=== PATIENT | female | born 1975 | race Caucasian/White ===

== ENCOUNTER 2021-01-30 13:43 | Emergency (ER) | payer OTHER, SELFPAY ==
[2021-01-30 13:50] VITALS: BP 142/67; PULSE 83; RESP 22; TEMP 36.9; O2SAT 98
--- NOTE | 2021-01-30 14:17 | ED.DENTAL ---
HPI - Dental/Oral General Chief complaint: Dental/Oral Stated complaint: Tooth pain/swelling Time Seen by Provider: 01/30/21 14:20 Source: patient, family and RN notes reviewed Mode of arrival: ambulatory Limitations: no limitations History of Present Illness HPI Narrative: 46 year old female who present to express care with complaints of pain to right gum area around #3 tooth which is decayed to the gum line with redness and swelling of her gum. Patient has moderate amount of swelling to the right side of her face. Patient states that she has been taking OTC Tylenol for pain and some left over Clindamycin. Patient states that she had problems with this area about a year or so ago and went to dentist who was going to charge her 1500 dollars to remove tooth even though she has dental insurance. MD Complaint: tooth pain Location: Tooth # (#3) Onset (ago): day(s) Severity scale (1-10): 8 Relieving factors: nothing Exacerbating factors: chewing and other (palpation to face) Context: history of dental caries and poor dental care Associated symptoms: gum swelling and other (facial swelliing) Related Data Allergies Allergy/AdvReac Type Severity Reaction Status Date / Time prednisone Allergy Intermediate Swelling Verified 01/30/21 14:01 Review of Systems Review of Systems: CONSTITUTIONAL: Denies fever, chills, or sweats. EYES: Denies visual changes, redness, or discharge. ENT: Denies rhinorrhea, congestion, sore throat, or otalgia.Positive for dental pain to right side of upper molar#3 with facial swelling. CARDIOVASCULAR: Denies chest pain, palpitations, or edema. RESPIRATORY: Denies cough or dyspnea. GASTROINTESTINAL: Denies abdominal pain, nausea, vomiting, or diarrhea. GENITOURINARY: Denies dysuria or hematuria. SKIN: Denies rash or itching. MUSCULOSKELETAL: Denies back pain, joint pain, or myalgia. NEUROLOGIC: Denies headache, numbness, or weakness. PSYCHIATRIC: Denies anxiety or depression. All systems reviewed & are unremarkable except as noted in HPI and below PMFSH Past Medical History Medical History Abdominal pain Allergies Asthma Asthma, mild intermittent Carpal tunnel syndrome Herpetic lesions of face (~08/2017) Low back pain with right-sided sciatica Mild intermittent asthma in adult without complication Obesity (BMI 35.0-39.9 without comorbidity) Renal mass (~08/2017) Tobacco abuse URI (upper respiratory infection) (~08/2017) Surgical History Surgical History History of tonsillectomy and adenoidectomy History of tubal ligation (~2005) [place] teeth extracted Family History Family History Mother Hypertension Social History Social History (Updated 11/15/20 @ 11:08 by Ruchi Cohen [facility]) Years smoked: 29 Smoking status: Current every day smoker Tobacco type: cigarettes Alcohol intake: never Alcohol use details: consumes 0 alcohol Substance use: never Substance use type: does not use Gender identity (if verbalized by the patient): Female Exam Narrative: GENERAL: Well-appearing, well-nourished, and in no acute distress. HEAD: Normocephalic, atraumatic. EYES: PERRLA and EOMI. ENT: Nares clear, no rhinorrhea or epistaxis. Mucous membranes moist. TMs normal with good light reflex, throat pink with no swelling, no exudates or lesions noted, no tonsil enlargement, No [place] angina, facial swelling of the right side of face with dental pain #3 tooth which is decayed to gum line with swelling and redness of gum NECK: Supple.no lymphadenopathy CHEST: Clear to auscultation. No respiratory distress.SAO2 98% on room air HEART: Regular rate and rhythm. No murmur heard. Normal peripheral pulses. ABDOMEN: Soft, nontender, nondistended, normal active bowel sounds. EXTREMITIES: Normal range of motion. No edema. SKIN: Warm, dry,
== END 2021-01-30 14:53 | disposition home or self-care (01) ==
PROVIDERS: Emergency Provider Registered Nurse
DX: K04.7 Periapical abscess without sinus (principal); R22.0 Localized swelling, mass and lump, head; F17.210 Nicotine dependence, cigarettes, uncomplicated; J45.909 Unspecified asthma, uncomplicated
CPT/HCPCS: 99213; G0463

== ENCOUNTER 2022-09-25 11:33 | Emergency (ER) | payer BC, SELFPAY ==
[2022-09-25 11:34] VITALS: BP 145/84; PULSE 71; RESP 18; TEMP 36.6; O2SAT 97
--- NOTE | 2022-09-25 11:48 | ED.DENTAL ---
HPI - Dental/Oral General Chief complaint: Dental/Oral Stated complaint: dental pain Time Seen by Provider: 09/25/22 11:39 History of Present Illness HPI Narrative: Patient presents with swelling to her right face, had been worse yesterday and is slightly better today, she has poor dentition and has trouble finding a dentist. No fevers or chills, nausea or vomiting. Related Data Allergies Allergy/AdvReac Type Severity Reaction Status Date / Time prednisone Allergy Intermediate Swelling Verified 09/25/22 11:41 Review of Systems Review of Systems: CONST: No fever. HEENT: Dental swelling C/V: No chest pain RESP: no shortness of breath GI: No nausea or vomiting : No dysuria. M/S: No joint pain. SKIN: No rash. NEURO: [No headache or focal numbness or weakness] PSYCH: [No depression] [facility] Past Medical History Medical History Abdominal pain Allergies Asthma Asthma, mild intermittent Carpal tunnel syndrome Herpetic lesions of face (~08/2017) Low back pain with right-sided sciatica Mild intermittent asthma in adult without complication Obesity (BMI 35.0-39.9 without comorbidity) Renal mass (~08/2017) Tobacco abuse URI (upper respiratory infection) (~08/2017) Surgical History Surgical History History of tonsillectomy and adenoidectomy History of tubal ligation (~2005) [place] teeth extracted Family History Family History Mother Hypertension Social History Social History (Updated 11/15/20 @ 11:08 by Ruchi Cohen CMA) Years smoked: 29 Smoking status: Current every day smoker Tobacco type: cigarettes Alcohol intake: never Alcohol use details: consumes 0 alcohol Substance use: never Substance use type: does not use Gender identity (if verbalized by the patient): Female Exam Narrative: EXAMINATION OF ORGAN SYSTEMS/BODY AREAS: Constitutional: Vital signs per nursing GENERAL:[No acute distress, non-toxic appearing.] HEAD: Normal with no signs of head trauma. EYES: Painless EOMI, conjunctiva normal ENT: swelling to the right maxilla, poor dentition, dental abscess R molar LUNGS: Nonlabored breathing. HEART: [Regular rate and rhythm] ABD: No distention EXT: Normal range of motion SKIN: [No rashes or lesions.] NEURO: [Alert and oriented x 3. No gross focal sensory or strength deficits.] PSYCH: Normal affect Course Vital Signs Vital signs: Vital Signs Temperature 97.9 F 09/25/22 11:34 Pulse Rate 71 09/25/22 11:34 Respiratory Rate 18 09/25/22 11:34 Blood Pressure 145/84 H 09/25/22 11:34 Pulse Oximetry 97 09/25/22 11:34 Oxygen Delivery Room Air 09/25/22 11:34 Temperature 97.9 F 09/25/22 11:34 Pulse Rate 71 09/25/22 11:34 Respiratory Rate 18 09/25/22 11:34 Blood Pressure 145/84 H 09/25/22 11:34 Pulse Oximetry 97 09/25/22 11:34 Oxygen Delivery Room Air 09/25/22 11:34 MDM - Dental/Oral MDM Narrative Medical decision making narrative: ED COURSE AND MEDICAL DECISION MAKING: Patient with worsening dental pain and dental decay. Small palpable abscess without much fluctuance due to drain. No systemic signs or symptoms. Antibiotics started here and prescriptions provided Follow-up instructions given for dental/oral surgery clinics. Patient was given return precautions and discharged home in stable condition. Discharge Plan Discharge Clinical Impression: Dental caries, Dental abscess Patient Disposition: Home, Self-Care Condition: Stable Instructions: Antibiotic Form, Dental Abscess (ED) Additional Instructions: Please follow up with the dentist as soon as possible; you can always return for any further issues, especially if you develop any fevers or chills, nausea or vomiting, or if the swelling does not improve after few days or if it gets
[2022-09-25] MEDS: CLINDAMYCIN HCL 150 MG CAP 450 MG PO (11:51)
== END 2022-09-25 12:03 | disposition home or self-care (01) ==
LOC: ANHED 12:02
PROVIDERS: Emergency Provider Emergency Medicine; PCP Family Medicine
DX: K04.7 Periapical abscess without sinus (principal); K02.9 Dental caries, unspecified; J45.20 Mild intermittent asthma, uncomplicated; E66.9 Obesity, unspecified; Z68.33 Body mass index [BMI] 33.0-33.9, adult; F17.210 Nicotine dependence, cigarettes, uncomplicated
CPT/HCPCS: 99283; A9270

== ENCOUNTER 2024-11-05 16:01 | Emergency (ER) | payer SELFPAY ==
--- NOTE | ~2024-11-05 | XR_ITS ---
XR shoulder RT min 2V Ordering provider: Jeff Morelos MD History: . shoulder pain . Comparison: None. FINDINGS: BONES: No acute fracture or dislocation. JOINT SPACES: The acromioclavicular joint is normal. The glenohumeral joint is normal. SOFT TISSUES: Normal. IMPRESSION: No acute osseous abnormality right shoulder. Reviewed, dictated and finalized at location A.
--- OUTSIDE RECORDS SUMMARY | 2024-11-05 16:03 | XMS_ITS | Continuity of Care Document ---
Author Organization [facility] Address [address] [place] [address] utive [facility] [address] [place] [address] Phone Care Team Providers [facility] Sales Name Role Phone Suazo OD, Jose L Unavailable Unavailable Procedures Procedure Date Eye Exam, New Patient Refraction Advance Directives Directive Yes / No Effective Date File Name No Information Encounters Encounter Description Practice Location Reason(s) For Visit Diagnoses Date Provider Providers Copied on Encounter [facility], [address] [place] [address] [address], [place], [place], [id number], [place] tel:[phone] [facility] No Information 9-200 9 Suazo OD Jose L. [address] , [address], [place], [address], [place]. tel:[phone] Family History Family Member Type Diagnosis Age At Onset No Information Payers Payer name Insurance type Covered libertarian ID Authoriza tion(s) Medicaid [facility] [id number] Social History Type Description Quantity Date Captured Comments Sex Female Smoking Status No Information Chief Complaint And Reason For Visit No Information Reason For Referral Reason For Referral No Information History Of Present Illness Encounter Date Complaint History Of Prese nt Illness No Information Functional Status Date Functional Assessmen t No Information Instructions Date Instruction Additional Infor mation No Information Assessments Type Assessment Date No Information Patient Care Teams Name Effective Dates (start - stop) Status Members No Information
[2024-11-05 16:20] VITALS: BP 125/70; PULSE 79; RESP 16; TEMP 36.2; O2SAT 100
[2024-11-05] MEDS: HYDROcodone/acetaminophen (*CRX) 5-325 MG TABLET 1 TAB PO (16:57)
[2024-11-05] MEDS: CYCLOBENZAPRINE HCL 10 MG TABLET PO (16:57)
--- NOTE | 2024-11-05 17:13 | ED.EXTPRO ---
HPI - Extremity Problem General Chief complaint: Extremity Problem,Nontraumatic Stated complaint: Right Shoulder to Elbow Pain Time Seen by Provider: 11/05/24 16:20 History of Present Illness HPI Narrative: 49-year-old female present to the emergency department for evaluation right shoulder pain patient states she has had pain radiating from right neck into the right shoulder. Patient reports the pain has been ongoing for the last few weeks but has been worsening. Patient states she has had intermittent tingling down the right arm. Patient denies any incident of injury Related Data Allergies Allergy/AdvReac Type Severity Reaction Status Date / Time prednisone Allergy Intermediate Swelling Verified 11/05/24 16:24 Review of Systems Review of Systems: All systems reviewed & are unremarkable except as noted in HPI and below PMFSH Past Medical History Medical History Abdominal pain Allergies Asthma Asthma, mild intermittent Carpal tunnel syndrome Herpetic lesions of face (~08/2017) Low back pain with right-sided sciatica Mild intermittent asthma in adult without complication Obesity (BMI 35.0-39.9 without comorbidity) Renal mass (~08/2017) Tobacco abuse URI (upper respiratory infection) (~08/2017) Surgical History Surgical History History of tonsillectomy and adenoidectomy History of tubal ligation (~2005) [place] teeth extracted Family History Family History Mother Hypertension Social History Social History (Updated 11/15/20 @ 11:08 by Ruchi Cohen CMA) Years smoked: 29 Smoking status: Current every day smoker Tobacco type: cigarettes Alcohol intake: never Alcohol use details: consumes 0 alcohol Substance use: never Substance use type: does not use Gender identity (if verbalized by the patient): Female Exam Narrative: APPEARANCE: Well appearing, no pain, no distress, well-nourished. HEAD: normocephalic, atraumatic. EYES: PERRLA/EOMI, conjunctivae clear. NOSE: Normal no drainage EARS:TMS clear with good light reflex. THROAT: Pharynx clear, no exudate. NECK: Supple. No adenopathy, no masses. RESPIRATORY: Airway patent, respirations nonlabored. Clear to auscultation bilaterally, no rales, rhonchi, wheezing. CARDIOVASCULAR: Regular rate and rhythm without murmurs rubs or gallops. ABDOMINAL: Soft, nontender, nondistended, normal bowel sounds MUSCULOSKELETAL: Right shoulder tenderness to palpation NEURO: Alert. Cranial nerves II through XII intact. Normal strength and reflexes of the right arm SKIN: Warm, dry. Normal Color PSYCHIATRIC: Normal affect/mood. Course Vital Signs Vital signs: Vital Signs Temperature 97.1 F L 11/05/24 16:20 Pulse Rate 79 11/05/24 16:20 Respiratory Rate 16 11/05/24 16:20 Blood Pressure 125/70 11/05/24 16:20 Pulse Oximetry 100 11/05/24 16:20 Oxygen Delivery Room Air 11/05/24 16:20 Temperature 97.7 F 11/05/24 17:41 Pulse Rate 64 11/05/24 17:41 Respiratory Rate 18 11/05/24 17:41 Blood Pressure 108/72 11/05/24 17:41 Pulse Oximetry 94 11/05/24 17:41 Oxygen Delivery Room Air 11/05/24 16:20 MDM - Extremity (Nontraumatic) MDM Narrative Medical decision making narrative: 49-year-old female presents emergency department for evaluation for right shoulder discomfort that radiates from neck to shoulder to elbow. Patient denies any reproducible tenderness to the elbow but states the pain radiates from the shoulder. Suspect cervical radiculopathy. Patient did have some tenderness to the right shoulder with no evidence of injury on x-ray. Patient provided sling for comfort. Initially I wished to get the patient started on Medrol Dosepak patient does have an underlying allergy to prednisone. Patient was started on scheduled naproxen and provided Flexeril for muscle spasm. Patient was encouraged of close follow-up with her primary care physician for an outpatient MRI. All questions and concerns were addressed patient was well-appearing at time of discharge. Differential Diagnosis Differential diagnosis: Likely other (Cervical radiculopathy, elbow strain, shoulder strain) Imaging Data Radiologist's impression: Impressions Shoulder X-Ray 11/05/24 17:13 IMPRESSION: No acute osseous abnormality right shoulder. Discharge Plan Discharge Clinical Impression: Cervical radiculopathy, Acute shoulder pain Patient Disposition: Home Condition: Stable Instructions: Antibiotic Form Additional Instructions: Sling for comfort. Naproxen as directed until completed. Flexeril for muscle spasm. Tylenol for pain control. Have close follow-up with your primary care physician. If your symptoms do not improve you may require a CT scan. Patient Language: Anguillan Prescriptions: New cyclobenzaprine 10 mg tablet 10 mg PO BID PRN (Reason: muscle spasm) Qty: 14 0RF naproxen 500 mg tablet 500 mg PO BID 7 Days Qty: 14 0RF No Action penicillin V potassium 500 mg tablet 500 mg PO Q12H 10 Days Qty: 20 0RF clindamycin HCl 150 mg capsule 450 mg PO Q8H 7 Days Qty: 63 0RF montelukast [Singulair] 10 mg tablet 10 mg PO QHS Qty: 30 3RF tramadol 50 mg tablet 50 mg PO Q6-8H PRN (Reason: pain) Qty: 90 0RF albuterol sulfate 90 mcg/actuation HFA aerosol inhaler See Rx Instructions .ROUTE .COMPLEX Qty: 18 6RF Dose Instruction: INHALE 2 PUFFS BY INHALATION ROUTE EVERY 6 HOURS NEEDED FOR WHEEZING Rx Instructions: INHALE 2 PUFFS BY INHALATION ROUTE EVERY 6 HOURS NEEDED FOR WHEEZING Follow-up/Referrals: Michelle Richey MD [Primary Care Provider] -
[2024-11-05 17:41] VITALS: BP 108/72; PULSE 64; RESP 18; TEMP 36.5; O2SAT 94
--- OUTSIDE RECORDS SUMMARY | 2024-11-05 18:03 | XMS_ITS | Continuity of Care Document ---
Author Organization [facility] Address [address] [place] [address] utive [facility] [address] [place] [address] Phone Care Team Providers Care Digital Photographic Printer Name Role Phone Suazo OD, Jose L Unavailable Unavailable Procedures Procedure Date Eye Exam, New Patient Refraction Advance Directives Directive Yes / No Effective Date File Name No Information Encounters Encounter Description Practice Location Reason(s) For Visit Diagnoses Date Provider Providers Copied on Encounter [facility], [address] [place] [address] [address], [place], [place], [id number], [place] tel:[phone] [facility] No Information 9-200 9 Suazo OD Jose L. [address] , [address], [place], [address], [place]. tel:[phone] Family History Family Member Type Diagnosis Age At Onset No Information Payers Payer name Insurance type Covered green party ID Authoriza tion(s) Medicaid [facility] [id number] Social History Type Description Quantity Date Captured [...]
== END 2024-11-05 17:50 | disposition home or self-care (01) ==
LOC: ANHED 18:01
PROVIDERS: Emergency Provider Emergency Medicine; PCP Family Medicine
DX: M54.12 Radiculopathy, cervical region (principal); M25.511 Pain in right shoulder; J45.20 Mild intermittent asthma, uncomplicated; E66.9 Obesity, unspecified; Z68.30 Body mass index [BMI] 30.0-30.9, adult; F17.210 Nicotine dependence, cigarettes, uncomplicated
CPT/HCPCS: 73030; 99283; A4565; A9270

== ENCOUNTER 2024-12-09 15:57 | Emergency (ER) | payer SELFPAY ==
--- OUTSIDE RECORDS SUMMARY | 2024-12-09 15:59 | XMS_ITS | Continuity of Care Document ---
Author Organization [facility] Address [address] [place] [address] utive [facility] [address] [place] [address] Phone Care Team Providers Care Blade Grader Operator Name Role Phone Suazo OD, Jose L Unavailable Unavailable Procedures Procedure Date Eye Exam, New Patient Refraction Advance Directives Directive Yes / No Effective Date File Name No Information Encounters Encounter Description Practice Location Reason(s) For Visit Diagnoses Date Provider Providers Copied on Encounter [facility], [address] [place] [address] [address], [place], [place], [id number], [place] tel:[phone] [facility] No Information 9-200 9 Suazo OD Jose L. [address] , [address], [place], [address], [place]. tel:[phone] Family History Family Member Type Diagnosis Age At Onset No Information Payers Payer name Insurance type Covered alliance party ID Authoriza tion(s) Medicaid [facility] [id number] Social History Type Description Quantity Date Captured [...]
--- OUTSIDE RECORDS SUMMARY | 2024-12-09 16:01 | XMS_ITS | Continuity of Care Document ---
Author Organization [facility] Address [address] [place] [address] [facility] [address] [place] [address] Phone Care Team Providers Care Truck Striker Name Role Phone Suazo OD, Jose L Unavailable Unavailable Procedures Procedure Date Eye Exam, New Patient Refraction Advance Directives Directive Yes / No Effective Date File Name No Information Encounters Encounter Description Practice Location Reason(s) For Visit Diagnoses Date Provider Providers Copied on Encounter [facility], [address] [place] [address] [address], [place], [place], [id number], [place] tel:[phone] [facility] No Information 9-200 9 Suazo OD Jose L. [address] , [address], [place], [address], [place]. tel:[phone] Family History Family Member Type Diagnosis Age At Onset No Information Payers Payer name Insurance type Covered alliance party ID Authoriza tion(s) Medicaid [facility] [id number] Social History Type Description Quantity Date Captured [...]
[2024-12-09 16:04] VITALS: BP 110/71; PULSE 71; RESP 20; TEMP 37.2; O2SAT 98
--- NOTE | 2024-12-09 16:26 | ED.DENTAL ---
HPI - Dental/Oral General Chief complaint: Dental/Oral Stated complaint: Tooth infection Time Seen by Provider: 12/09/24 16:12 Source: patient and RN notes reviewed Mode of arrival: ambulatory Limitations: no limitations History of Present Illness HPI Narrative: Patient presents today complaining of right upper dental pain since yesterday with right upper jaw swelling since this morning. States she has several teeth that could be the culprit of her pain in the right upper gumline. Currently rates her pain 7/10. She took 2 ibuprofen at 4:00 a.m. this morning, but none since that time. She denies shortness of breath, difficulty swallowing, fever, trismus. Smokes 1.5 packs per day. She does not currently have a dentist. Related Data Allergies Allergy/AdvReac Type Severity Reaction Status Date / Time No Known Allergies Allergy Verified 12/09/24 16:24 [facility] Past Medical History Medical History Tobacco abuse Obesity (BMI 35.0-39.9 without comorbidity) Asthma, mild intermittent Low back pain with right-sided sciatica URI (upper respiratory infection) (~08/2017) Abdominal pain Herpetic lesions of face (~08/2017) Renal mass (~08/2017) Asthma Allergies Carpal tunnel syndrome Mild intermittent asthma in adult without complication Surgical History Surgical History [place] teeth extracted History of tonsillectomy and adenoidectomy History of tubal ligation (~2005) Family History Family History Mother Hypertension Social History Social History Years smoked: 29 Smoking status: Current every day smoker Tobacco type: cigarettes Alcohol intake: never Alcohol use details: consumes 0 alcohol Substance use: never Substance use type: does not use Gender identity (if verbalized by the patient): Female Comments At time of signature, I have reviewed and agree with nursing past medical, surgical, social and family history unless otherwise noted. Please see nursing chart for further information. There is no relevant family history pertinent to the presenting complaint Exam Narrative: GENERAL: Well-appearing, well-nourished, and in no acute distress. HEAD: Normocephalic, atraumatic. EYES: EOMI. No redness or drainage. Conjunctivae normal. ENT: Mucous membranes pink and moist. Throat normal. Right upper gumline has 4 teeth broken at the gumline with some swelling of the gums without any obvious periapical abscess. Mild right upper cheek swelling that is tender to palpation. No trismus noted. Gross dental decay. NECK: Normal AROM. Supple. No lymphadenopathy. CHEST: No respiratory distress. Clear to auscultation. HEART: Regular rate and rhythm. No murmur appreciated. EXTREMITIES: Normal range of motion. No edema. SKIN: Warm, dry, no rash. Capillary refill normal. Normal skin turgor. NEURO: No focal deficits. Alert and oriented x3. Gait steady. PSYCH: Normal affect. No signs of depression or anxiety. Course Course Level of Care: Express Care Visit Vital Signs Vital signs: Vital Signs Temperature 98.9 F 12/09/24 16:04 Pulse Rate 71 12/09/24 16:04 Respiratory Rate 20 12/09/24 16:04 Blood Pressure 110/71 12/09/24 16:04 Pulse Oximetry 98 12/09/24 16:04 Oxygen Delivery Room Air 12/09/24 16:04 Temperature 98.9 F 12/09/24 16:04 Pulse Rate 71 12/09/24 16:04 Respiratory Rate 20 12/09/24 16:04 Blood Pressure 110/71 12/09/24 16:04 Pulse Oximetry 98 12/09/24 16:04 Oxygen Delivery Room Air 12/09/24 16:04 Reviewed MDM - Dental/Oral MDM Narrative Medical decision making narrative: 49-year-old female patient presents today with dental pain that started yesterday and facial swelling that started today. Denies any more serious symptoms to include fever, difficulty swallowing, shortness of breath. Upon exam patient has some mild right upper jaw line swelling and some mild swelling of the gumline as well as several teeth broken at the gumline. Patient will be treated with a course of Augmentin and prednisone with recommendations to see a dentist as soon as possible. Strict ED precautions given. Vital signs stable. Patient agrees with plan. Differential Diagnosis Differential diagnosis: Likely gingival abscess, dental caries, toothache and dental abscess Critical Care Time Critical Care Time Critical Care Time: No Discharge Plan Discharge Clinical Impression: Dental abscess Patient Disposition: Home Condition: Stable Instructions: Antibiotic Form, Dental Abscess (ED) Additional Instructions: Please take the Augmentin and prednisone as prescribed. Take the ibuprofen for pain and swelling. Follow-up with a dentist as soon as possible for further evaluation and treatment. As discussed, please go to the ER immediately if you develop any shortness of breath, difficulty swallowing, difficulty opening your mouth. Patient Language: Lao Prescriptions: New prednisone 20 mg tablet 40 mg PO DAILY 5 Days Qty: 10 0RF amoxicillin-pot clavulanate 875-125 mg tablet 1 tablet PO Q12H 10 Days Qty: 20 0RF No Action albuterol sulfate 90 mcg/actuation HFA aerosol inhaler See Rx Instructions .ROUTE .COMPLEX Qty: 18 6RF Dose Instruction: INHALE 2 PUFFS BY INHALATION ROUTE EVERY 6 HOURS NEEDED FOR WHEEZING Rx Instructions: INHALE 2 PUFFS BY INHALATION ROUTE EVERY 6 HOURS NEEDED FOR WHEEZING Follow-up/Referrals: Michelle Richey MD [Primary Care Provider] - Time of Disposition: 16:25
== END 2024-12-09 16:28 | disposition home or self-care (01) ==
PROVIDERS: Emergency Provider Nurse Practitioner; PCP Family Medicine
DX: K04.7 Periapical abscess without sinus (principal); F17.210 Nicotine dependence, cigarettes, uncomplicated
CPT/HCPCS: 99213; G0463

== ENCOUNTER 2025-01-22 13:05 | Emergency (ER) | payer SELFPAY ==
[2025-01-22 13:11] VITALS: BP 133/74; PULSE 79; RESP 22; TEMP 37.1; O2SAT 99
--- NOTE | 2025-01-22 13:14 | ED_ITS ---
HPI - Ear Problem General Chief complaint: Dental/Oral Stated complaint: ear ache Source: patient Mode of arrival: ambulatory Limitations: no limitations History of Present Illness HPI Narrative: 50-year-old female presented for complaint of left ear pain for 3 days. Endorses decreased hearing and that she felt drainage when laying on the left side. Also says she started to have swelling around the ear and into the cheek. Denies tinnitus with a complaint nasal congestion nausea, fevers or chills. Took Tylenol for symptoms. Patient also reports burning at the end of urination intermittently for several weeks. Denies hematuria, nausea, vomiting, abdominal pain, flank pain, constipation, diarrhea, fevers or chills. MD Complaint: ear pain Related Data Allergies Allergy/AdvReac Type Severity Reaction Status Date / Time No Known Allergies Allergy Verified 01/22/25 13:16 Review of Systems Review of Systems: CONSTITUTIONAL: Denies malaise, chills, or fever. EYES: Denies visual changes, redness, or discharge. ENT: Denies rhinorrhea, congestion, sinus pain, and sore throat. Reports ear pain CARDIOVASCULAR: Denies chest pain, palpitations, or edema. RESPIRATORY: Denies cough or dyspnea. GASTROINTESTINAL: Denies abdominal pain, nausea, vomiting, diarrhea SKIN: Denies rash. MUSCULOSKELETAL: Denies myalgia. NEUROLOGIC: Denies headache. All systems reviewed & are unremarkable except as noted in HPI and below PMFSH Past Medical History Medical History Tobacco abuse Obesity (BMI 35.0-39.9 without comorbidity) Asthma, mild intermittent Low back pain with right-sided sciatica URI (upper respiratory infection) (~08/2017) Abdominal pain Herpetic lesions of face (~08/2017) Renal mass (~08/2017) Asthma Allergies Carpal tunnel syndrome Mild intermittent asthma in adult without complication Surgical History Surgical History [place] teeth extracted History of tonsillectomy and adenoidectomy History of tubal ligation (~2005) Family History Family History Mother Hypertension Social History Social History Years smoked: 29 Smoking status: Current every day smoker Tobacco type: cigarettes Alcohol intake: never Alcohol use details: consumes 0 alcohol Substance use: never Substance use type: does not use Gender identity (if verbalized by the patient): Female Comments At time of signature, agree with nursing past medical, surgical, social and family history. There is no relevant family history pertinent to the presenting complaint Exam Narrative: GENERAL: Well-appearing EYES: PERRLA, conjunctivae clear ENT: Nares clear. Mucous membranes moist. Poor dentition throughout. Left TM erythematous, bulging and intact; canal is erythematous, tender, mild drainage and swelling; left tragal tenderness. Oropharynx not erythematous without lesions. no drooling, no hoarseness, no trismus, uvula midline. NECK: Supple. No lymphadenopathy CHEST: Clear to auscultation, breath sounds equal HEART: Regular rate and rhythm. SKIN: Warm, dry, no rash. NEURO: Alert and oriented x3. PSYCH: Normal mood and affect Course Course Emergency Course: Patient is aware of diagnosis, understands and agrees to treatment plan. Anticipatory guidance given. Patient agrees to follow-up as directed and is aware of reasons to seek care at the emergency department. Portions of this record may have been created with voice recognition software Level of Care: Express Care Visit Vital Signs Vital signs: Vital Signs Temperature 98.7 F 01/22/25 13:11 Pulse Rate 79 01/22/25 13:11 Respiratory Rate 22 H 01/22/25 13:11 Blood Pressure 133/74 01/22/25 13:11 Pulse Oximetry 99 01/22/25 13:11 Oxygen Delivery Room Air 01/22/25 13:11 Temperature 98.7 F 01/22/25 13:11 Pulse Rate 79 01/22/25 13:11 Respiratory Rate 22 H 01/22/25 13:11 Blood Pressure 133/74 01/22/25 13:11 Pulse Oximetry 99 01/22/25 13:11 Oxygen Delivery Room Air 01/22/25 13:11 Reviewed Medical Decision Making MDM Narrative Medical decision making narrative: Discussed physical exam findings consistent with otitis media and otitis externa. Reviewed abx rx. Poor dentition throughout. Results of urine reviewed with patient. Advised supportive measures and signs/symptoms to go to the ER. Patient is appropriate for outpatient treatment and follow-up. Differential Diagnosis Differential Diagnosis: Coronavirus, strep pharyngitis, allergic rhinitis, upper respiratory tract infection, sinusitis, rhinosinusitis, nasopharyngitis, viral pharyngitis, otitis media, otitis externa, eustachian tube dysfunction, foreign body, cerumen impaction. Vital Signs Vital Signs: Vital Signs Temperature 98.7 F 01/22/25 13:11 Pulse Rate 79 01/22/25 13:11 Respiratory Rate 22 H 01/22/25 13:11 Blood Pressure 133/74 01/22/25 13:11 Pulse Oximetry 99 01/22/25 13:11 Oxygen Delivery Room Air 01/22/25 13:11 Temperature 98.7 F 01/22/25 13:11 Pulse Rate 79 01/22/25 13:11 Respiratory Rate 22 H 01/22/25 13:11 Blood Pressure 133/74 01/22/25 13:11 Pulse Oximetry 99 01/22/25 13:11 Oxygen Delivery Room Air 01/22/25 13:11 Discharge Plan Discharge Clinical Impression: Otitis media, Otitis externa, Dysuria Patient Disposition: Home Condition: Stable Instructions: Antibiotic Form, Ear Infection (ED) Additional Instructions: ear: Swimmer's ear is an infection in the outer ear canal, which runs from your eardrum to the outside of your head. It's often caused by water that remains in your ear, creating a moist environment that encourages the growth of bacteria. Take antibiotic and drops as directed. Tylenol and ibuprofen every 8 hours as needed to reduce fever, pain Avoid water or anything into the ear for one week urine: The urine will be sent of for a culture to identify what type of bacteria is causing your infection. If the culture shows that the antibiotic will not get rid of your infection, you will be notified and a new antibiotic will be called in for you. Increase water intake you will need to follow up with your PCP, call to schedule an appointment. Go to the ER for any worsening symptoms or concerns Patient Language: Cuban Prescriptions: New ibuprofen 800 mg tablet 800 mg PO TID PRN (Reason: pain) Qty: 15 0RF amoxicillin-pot clavulanate 875-125 mg tablet 1 tablet PO Q12H 7 Days Qty: 14 0RF ciprofloxacin-dexamethasone 0.3-0.1 % drops,suspension 4 drp LEFT EAR Q12H 7 Days Qty: 7.5 0RF No Action albuterol sulfate 90 mcg/actuation HFA aerosol inhaler See Rx Instructions .ROUTE .COMPLEX Qty: 18 6RF Dose Instruction: INHALE 2 PUFFS BY INHALATION ROUTE EVERY 6 HOURS NEEDED FOR WHEEZING Rx Instructions: INHALE 2 PUFFS BY INHALATION ROUTE EVERY 6 HOURS NEEDED FOR WHEEZING Follow-up/Referrals: Michelle Richey MD [Primary Care Provider, Family Practice]
[2025-01-22 13:29] LABS: EDUAAPPEAR Clear; EDUABILI Negative (Negative); EDUABLOOD Negative (Negative); EDUACOLOR1 Yellow; EDUAGLUCOSE 1+ (Negative); EDUAKETONE Negative (Negative); EDUALEUKO 1+ (Negative); EDUANITRATE Negative (Negative); EDUAPH 6.0; EDUAPROTEIN Negative (Negative); EDUASPGRAVITY 1.010; EDUAUROBILI 0.2
== END 2025-01-22 13:30 | disposition home or self-care (01) ==
PROVIDERS: Emergency Provider Nurse Practitioner Family; PCP Family Medicine
DX: H66.92 Otitis media, unspecified, left ear (principal); H60.92 Unspecified otitis externa, left ear; R30.0 Dysuria; F17.210 Nicotine dependence, cigarettes, uncomplicated; Z68.30 Body mass index [BMI] 30.0-30.9, adult; E66.9 Obesity, unspecified; J45.909 Unspecified asthma, uncomplicated
CPT/HCPCS: 81003; 87086; 99213; G0463